=== PATIENT | female | born 1990 | race Caucasian/White ===

== ENCOUNTER 2016-10-13 07:21 | Emergency (ER) | payer OTHER ==
[~2016-10-13] VITALS: Ht 157.5 cm; Wt 55.3 kg
[~2016-10-13 07:21] MED LIST: ADDERALL20 MG PO; ADDERALL5 MG PO; AMOXICILLIN500 M1 PO; AMOXICILLIN500 MG PO; AMOXICILLIN875 MG PO; KEFLEX500 MG PO; MELOXICAM7.5 MG PO; MOTRIN600 MG PO; MOTRIN800 MG PO; NAPROSYN500 MG PO; NORCO 5/3251 TABLET PO; PEN-VEE K,VEET500 MG PO; PERCOCET 5/31 TABLET PO; TRAMADOL HCL50 MG PO; ULTRAM50 MG PO; ZOFRAN ODT4 MG PO
[2016-10-13] MEDS ORDERED: PREDNISONE20 MG PO (07:39)
[2016-10-13] MEDS ORDERED: AMOXICILLIN500 MG PO (07:39)
[2016-10-13] MEDS ORDERED: NAPROSYN500 MG PO (07:40)
[2016-10-13 07:54] VITALS: BP 132/97
== END 2016-10-13 07:55 | disposition home or self-care (01) ==
LOC: EME 07:21
DX: K02.9 Dental caries, unspecified (principal)
CPT/HCPCS: 99281; 99284

== ENCOUNTER 2016-11-02 12:49 | Emergency (ER) | payer OTHER ==
[~2016-11-02] VITALS: Ht 157.5 cm; Wt 56.8 kg
[~2016-11-02 12:49] MED LIST changes: +PREDNISONE20 MG PO
[2016-11-02] MEDS ORDERED: AMPHETAMINE SAL20 MG PO (15:35)
[2016-11-02] MEDS ORDERED: LARIN FE 1.5-31 EACH PO (15:35)
[2016-11-02] MEDS ORDERED: MOTRIN600 MG PO (16:39)
[2016-11-02] MEDS ORDERED: PERCOCET 5/31 TABLET PO (16:39)
[2016-11-02] MEDS ORDERED: PEN-VEE K,VEET500 MG PO (16:39)
[2016-11-02 16:44] VITALS: BP 137/90
== END 2016-11-02 16:46 | disposition home or self-care (01) ==
LOC: EME 12:49
DX: K08.89 Other specified disorders of teeth and supporting structures (principal); K02.9 Dental caries, unspecified
CPT/HCPCS: 99281; 99284

== ENCOUNTER 2017-07-18 17:24 | Emergency (ER) | payer OTHER ==
[~2017-07-18] VITALS: Ht 157.5 cm; Wt 74.5 kg
[~2017-07-18 17:24] MED LIST changes: +AMPHETAMINE SAL20 MG PO; +LARIN FE 1.5-31 EACH PO
[2017-07-18 20:53] VITALS: BP 131/94
== END 2017-07-18 20:55 | disposition home or self-care (01) ==
LOC: EME 17:24
DX: Z04.1 Encounter for examination and observation following transport accident (principal)
CPT/HCPCS: 99281; 99285

== ENCOUNTER 2017-09-16 10:52 | Emergency (ER) | payer OTHER ==
[~2017-09-16] VITALS: Ht 157.5 cm; Wt 65.0 kg
[2017-09-16] MEDS ORDERED: NORCO 5/3251 TABLET PO (14:09)
[2017-09-16] MEDS ORDERED: AMOXICILLIN875 MG PO (14:09)
[2017-09-16 14:47] VITALS: BP 124/82
== END 2017-09-16 14:48 | disposition home or self-care (01) ==
LOC: EME 10:52
DX: K04.7 Periapical abscess without sinus (principal); F90.9 Attention-deficit hyperactivity disorder, unspecified type
CPT/HCPCS: 99281; 99283

== ENCOUNTER 2018-01-20 12:49 | Emergency (ER) | payer OTHER ==
[~2018-01-20] VITALS: Ht 157.5 cm; Wt 67.9 kg
[2018-01-20] MEDS ORDERED: AMOXICILLIN875 MG PO (14:26)
[2018-01-20] MEDS ORDERED: TYLENOL WITH C1 EACH PO (14:26)
[2018-01-20 15:07] VITALS: BP 134/95
== END 2018-01-20 15:07 | disposition home or self-care (01) ==
LOC: EME 12:49
DX: K02.9 Dental caries, unspecified (principal); F90.9 Attention-deficit hyperactivity disorder, unspecified type; Z87.442 Personal history of urinary calculi
CPT/HCPCS: 99281; 99283